=== PATIENT | female | born 1960 | race Caucasian/White ===

== ENCOUNTER → 2017-03-16 | Outpatient (CLI) | payer BC ==
[~2017-03-16] MED LIST: FLUT0.15 NAE; MULT-506 PO
--- NOTE | 2017-03-16 12:29 | MAMMOGRAPHY REPORT ---
BILATERAL DIGITAL SCREENING MAMMOGRAM TOMOSYNTHESIS WITH CAD: 03/16/2017 CLINICAL HISTORY: Routine screening. Patient has no complaints. TECHNIQUE: Breast tomosynthesis in addition to standard 2D mammography was performed. Current study was also evaluated with a Computer Aided Detection (CAD) system. COMPARISON: Comparison is made to exams dated: 03/15/2016 mammogram, 09/09/2014 ultrasound, 03/12/2015 mammogram, 09/09/2014 mammogram, 03/12/2014 mammogram, and 03/05/2014 mammogram - [facility]. BREAST COMPOSITION: The tissue of both breasts is heterogeneously dense, which may obscure small mas ses. FINDINGS: No suspicious masses, calcifications, or areas of architectural distortion are noted in ei ther breast. There has been no significant interval change compared to prior exams. Bilateral benign -appearing calcifications are not significantly changed, including loosely grouped calcifications in the right 12:00 breast which are stable dating back to at least the 2010 exam. IMPRESSION: ACR BI-RADS CATEGORY 2: BENIGN There is no mammographic evidence of malignancy. A 1 year screening mammogram is recommended. The pa tient will receive written notification of the results. Approximately 10% of breast cancers are not detected with mammography. A negative mammographic report should not delay biopsy if a clinically suggestive mass is present. Dior Gamino M.D. /:03/16/2017 08:02:28 Ambulatory Service Representative: Leeann OLVERA)(Jenny), [facility] letter sent: Normal 1/2 BI-RADS Code: ACR BI-RADS Category 2: Benign
== END | disposition home or self-care (01) ==
LOC: C.MAMM 07:39
PROVIDERS: ATTEND Obstetrics & Gynecology
DX: Z12.31 Encounter for screening mammogram for malignant neoplasm of breast (principal)

== ENCOUNTER → 2017-03-23 | Outpatient (CLI) | payer BC | END | disposition home or self-care (01) | LOC: C.PAPS 11:18 | PROVIDERS: ATTEND Obstetrics & Gynecology | DX: Z01.419 Encounter for gynecological examination (general) (routine) without abnormal findings (principal); Z11.51 Encounter for screening for human papillomavirus (HPV); Z87.410 Personal history of cervical dysplasia ==

== ENCOUNTER 2017-04-07 09:55 | Observation (INO) | payer BC ==
[2017-03-31 13:30] VITALS: BMI 22.0
--- NOTE | 2017-03-31 14:05 | PAT Medication Instructions ---
Service Date Mar 31, 2017. Current Home Medication List Fluticasone Propionate (Nasal) (Flonase Allergy Relief), 1 SPRAY OBIE QAM Multivitamin (Multivitamin), 1 TAB PO QAM Medication Instructions For Your Scheduled Surgery - Hold the following medications the morning of surgery: Multivitamin (Multivitamin), 1 TAB PO QAM - Take the following medications the morning of surgery with a sip of water: Fluticasone Propionate (Nasal) (Flonase Allergy Relief), 1 SPRAY OBIE QAM *nothing to eat or drink after midnight* If you have any questions please call us at [phone] or [phone] or [phone]
[2017-03-31 14:40] LABS: BASO % 0.2 %; BASO ABS # 0.01 K/uL (0-0.2); COMPLETE YES; EOS % 0.7 %; HEMATOCRIT 43.4 % (37-47); LYMPH % 20.9 %; LYMPH ABS # 0.93 K/uL (1.2-3.4); MEAN CORPUSCULAR HEMOGLOBIN 30.6 pg (25-34); MEAN CORPUSCULAR HGB CONC 33.6 g/dl (32-36); MEAN PLATELET VOLUME 10.8 fL (7.4-10.4); MONO % 6.3 %; NEUT % 71.9 %; PLATELET COUNT 179 K/uL (130-400); RED BLOOD COUNT 4.77 M/uL (4.2-5.4); WHITE BLOOD COUNT 4.46 K/uL (4.8-10.8)
[2017-04-07] VITALS (8 sets, daily range): BP systolic 106–125; BP diastolic 64–72; PULSE 87–124; TEMP 36.3–37; O2SAT 91–100; Ht 162.6 cm; Wt 58.4 kg
[~2017-04-07] VITALS: Ht 162.6 cm; Wt 58.4 kg
[~2017-04-07 09:55] MED LIST changes: +CEFAZOLIN 2000MG IV PUSH 10 ML IV SCH; +LACTATED RINGER'S 1000ML 1,000 ML IV SCH; +LACTATED RINGER'S 1000ML IV SCH; +SCOPOLAMINE 1.5 MG TDSY TD SCH
[2017-04-07] MEDS ORDERED: CEFAZOLIN SOD 2000MG/10 ML IV PUSH IV ONE (11:10)
[2017-04-07] MEDS ORDERED: SCOPOLAMINE 1.5 MG TDSY TD ONE (11:15)
[2017-04-07] MEDS ORDERED: FENTANYL CITRATE INJ 50 MCG/1 ML 2 ML VIAL ONE ×2 (12:03→14:20)
[2017-04-07] MEDS ORDERED: HYDROmorphone INJ 2 MG/ML SYR/VIAL ONE (12:03)
[2017-04-07] MEDS ORDERED: MIDAZOLAM HCL 1 MG/ML 2ML VIAL ONE (12:03)
[2017-04-07] MEDS ORDERED: METHYLENE BLUE 0.5% 10 ML VIAL ONE (12:32)
[2017-04-07] MEDS ORDERED: BUPIVACAINE 0.5 % 5 MG/1 ML MPF 30ML VIAL ONE (12:32)
--- NOTE | 2017-04-07 12:40 | History & Physical Bridge Note ---
H&P Re-Evaluation Bridge Note: I have examined the patient, reviewed the History & Physical and in the interval since the performance of the History & Physical I have noted the following changes of clinical significance: No changes noted
[2017-04-07] MEDS ORDERED: CISATRACURIUM BESYLATE IV SOLN 2 MG/ML 10 ML VIAL ONE (14:20)
[2017-04-07] MEDS ORDERED: NEOSTIGMINE METHYLSULFATE 5 MG/5 ML SYR ONE (14:20)
[2017-04-07] MEDS ORDERED: KETOROLAC TROMETHAMINE 30 MG/ML VIAL ONE (14:20)
[2017-04-07] MEDS ORDERED: PROPOFOL IV EMULSION 10 MG/ML 20 ML VIAL IV ONE (14:20)
[2017-04-07] MEDS ORDERED: SUCCINYLCHOLINE CHLORIDE 20 MG/ML 10 ML VIAL IV ONE (14:20)
[2017-04-07] MEDS ORDERED: ONDANSETRON INJ 2 MG/ML 2 ML VIAL ONE (14:20)
[2017-04-07] MEDS ORDERED: GLYCOPYRROLATE INJ 0.2 MG/ML VIAL ONE (14:20)
[2017-04-07] MEDS ORDERED: DEXAMETHASONE SOD INJ 4 MG/ML VIAL ONE (14:20)
[2017-04-07] MEDS ORDERED: LIDOCAINE HCL 2% 2 ML VIAL (20MG/ML) ONE (14:20)
[2017-04-07] MEDS ORDERED: TISSEEL FIBRIN SEALANT 4ML TOP ONE (14:38)
[2017-04-07] MEDS ORDERED: MEPERIDINE HCL 50 MG/ML CARP IV PRN ×2 (15:30)
[2017-04-07] MEDS ORDERED: PROMETHAZINE HCL INJ 25 MG in SODIUM CHLORIDE 0.9% 50ML 50 ML IV PRN (15:30)
[2017-04-07] MEDS ORDERED: LACTATED RINGER'S 1000ML 1,000 ML IV SCH (15:30)
[2017-04-07] MEDS ORDERED: IBUPROFEN 600 MG TAB PO PRN (15:30)
[2017-04-07] MEDS ORDERED: OXYCODONE/ACETAMINOPHEN 5-325 TAB PO PRN ×2 (15:30)
[2017-04-07] MEDS ORDERED: SIMETHICONE 80 MG CHEW PO PRN (15:30)
[2017-04-07] MEDS ORDERED: ACETAMINOPHEN 325 MG TAB PO PRN (15:30)
[2017-04-07] MEDS ORDERED: KETOROLAC TROMETHAMINE 30 MG/ML VIAL IV. PRN (15:30)
--- NOTE | 2017-04-07 15:33 | [facility] Post Operative Brief Note ---
Immediate Operative Summary Operative Date Apr 07, 2017. Pre-Operative Diagnosis Postmenopausal bleeding, leiomyoma of uterus Post-Operative Diagnosis Postmenopausal bleeding, leiomyoma of uterus Procedure(s) Performed Robot Assisted Total Laparoscopic Hysterectomy, Bilateral Salpingo-oophorectomy , Cystoscopy; Surgical resection of uterus, cervix, bilateral fallopian tubes and ovaries Surgeon Dr. Reta Ferrell Buckle Gluer Surgeon(s) Dr Leggett Estimated Blood Loss 25 mL Findings uterus about 15 weeks size, nl ovs, nl tubes, fibroids Fluids (cc crystalloids) 1700cc Specimens Permanent specimens A: Surgically resected uterus, cervix, bilateral fallopian tubes and bilateral ovaries Drains major Anesthesia gett Complication(s) None Disposition Recovery Room / PACU
[2017-04-07] MEDS ORDERED: OXYC-57 PO (15:34)
--- NOTE | 2017-04-07 15:35 | Discharge Instructions ---
Discharge Instructions Date of Service Apr 07, 2017. Admission Reason for Admission: Leiomyoma Of Uterus, Post Menopausal Bleeding Discharge Discharge Diagnosis / Problem: s/p laproscopic removal of uterus, tubes and ovaries. Discharge Goals Goal(s): Routine recovery after surgery Activity Recommendations Activity Limitations: per Instructions/Follow-up section . Instructions / Follow-Up Instructions / Follow-Up POST OPERATIVE: BOWEL FUNCTION/MEDICATIONS: 1. Constipation pain and discomfort are the most common complaints 5-7 days after surgery. Points 2-6 address the things that can help. 2. Chewing gum can help stimulate the gut and help improve digestion and motility. 3. Milk of Magnesia 1-2 times per day until return of bowel function. 4. Colace is a stool softener that helps. Taking this 2-3 times per day until bowel function returns to normal is highly recommended. 5. Dulcolax is a laxative that may be used if several days have passed without a bowel movement. Alternatively Miralax may be used daily instead. 6. Drink plenty of fluids as this will also reduce constipation. 7. Narcotic pain medications will be prescribed by your physician. They are safe to use and we encourage you to use them. If you are not allergic, ibuprofen will also be prescribed. Many patients will be able to transition off of the narcotic medications to ibuprofen by postoperative day 3. ACTIVITY RECOMMENDATIONS: 1. Get plenty of rest and listen to your body. If you are tired, take a nap. 2. You may shower, but do not take a tub bath until you see your doctor at the 2 week post operative visit. 3. Absolutely NO intercourse and nothing in the vagina until you are examined by your doctor at the 6 week visit. At that visit it will be determined when such activities can be resumed. This can range from 6-12 weeks after your surgery depending on healing time. 4. The main physical activity in the first week should be walking. By the second week you can slowly increase activity. There are no limits on walking up and down stairs. 5. Do not lift more than 5-10 lbs for 4 weeks. Remember the "one-handed rule", i.e. if you can lift something with only one hand it's likely okay. 6. Minimize glass cutter helper like vacuuming and exercising for 4 weeks. "Overdoing it" can lead to incisions not healing, pain and vaginal bleeding , so again, listen to your body. 7. Driving can be resumed when you feel able. Do not drive within 24 hours of taking a narcotic medication. EXPECTATIONS: 1. Vaginal spotting, bleeding and discharge are common after surgery. There may even be an odor to the discharge which is often related to sutures used in the vagina. If you experience heavy vaginal bleeding, call the office number day or night [phone]. 2. Bladder discomfort is common after surgery from the catheter. This usually resolves in 1-2 weeks. 3. By the end of the 3rd or 4th week you should be feeling much better. It may take up to 6 weeks for your energy levels to return to normal. 4. Narcotic medications have side effects such as: dizziness, headache, nausea and/or vomiting. If you suspect your pain medication is causing problems, call our office and we may be able to prescribe an alternate medication. 5. The skin incisions are often covered with a liquid bandage. This will gradually peel off over time. CALL THE OFFICE IF YOU HAVE ANY OF THE FOLLOWIN. Temperature of 101 degrees or higher. 2. Severe abdominal or pelvic pain not relieved by pain medication. 3. Persistent nausea or vomiting. 4. Increased pain with urination or difficulty urinating. 5. Bright red bleeding that soaks more than 1 pad per hour. CONTACT PHONE NUMBERS: Main Office: [phone] Surgical Nurse: [phone] extension [phone] FOLLOW-UP: Post-Operative Appointments: * Individual instructions will have been given about the timing of your first examination, but this is usually at the end of the second week home. * You will need to call the office at soon after discharge to make the appointment for your post-op check-up if it has not already been scheduled. * Additional information regarding activity, sexual intercourse and when to return to work will be given at this appointment. WE WISH YOU A SPEEDY RECOVERY! Current Hospital Diet Patient's current hospital diet: Discharge Diet Recommended Diet: Regular Diet Procedures Procedures Performed: Robot Assisted Total Laparoscopic Hysterectomy, Bilateral Salpingo-oophorectomy , Cystoscopy; Surgical resection of uterus, cervix, bilateral fallopian tubes and ovaries Pending Studies Studies pending at discharge: no Medical Emergencies . Who to Call and When: Medical Emergencies: If at any time you feel your situation is an emergency, please call 911 immediately. . Non-Emergent Contact Non-Emergency issues call your: Seafood Clerk . . "Provider Documentation" section prepared by Reta Ferrell. . VTE Core Measure Inpt VTE Proph given/why not?: Treatment not indicated [place] Drug Monitoring Program Search Results: patient reviewed within database, no issues identified
[2017-04-07] MEDS ORDERED: IV FLUIDS COMPLETED PRN (16:00)
[2017-04-07] MEDS ORDERED: ONDANSETRON INJ 2 MG/ML 2 ML VIAL IV PRN (16:30)
[2017-04-07] MEDS ORDERED: ALBUT/IPRATROP 3MG/0.5MG NEB 3 ML VIAL INH PRN (16:30)
[2017-04-07] MEDS ORDERED: LABETALOL HCL IV 5 MG/ML 20ML IV PRN (16:30)
[2017-04-07] MEDS ORDERED: HYDROmorphone INJ 1 MG/ML SYR IV PRN (16:30)
[2017-04-07] MEDS ORDERED: PROMETHAZINE HCL INJ 12.5 MG in SODIUM CHLORIDE 0.9% 50ML 50 ML IV PRN (16:30)
[2017-04-07] MEDS ORDERED: FLUMAZENIL 0.1 MG/1 ML 10 ML VIAL IV PRN (16:30)
[2017-04-07] MEDS ORDERED: EpHEDrine SULFATE INJ 50 MG/ML AMP IV PRN (16:30)
[2017-04-07] MEDS ORDERED: NALOXONE HCL 0.4 MG/1 ML VIAL/CARP IV PRN (16:30)
[2017-04-07] MEDS ORDERED: METOPROLOL TARTRATE 1 MG/ML VIAL ONE (16:58)
[2017-04-07] MEDS ORDERED: METOPROLOL TARTRATE 1 MG/ML VIAL IV STA (17:00)
--- NOTE | 2017-04-07 17:40 | Anesthesiology Progress Note ---
Anesthesia Post Op Note Date & Time Apr 07, 2017 at 17:40 Vital Signs Pain Intensity: 0 Vital Signs Past 12 Hours Date Time Temp Pulse Resp B/P (MAP) Pulse Ox O2 Delivery O2 Flow Rate FiO2 04/07/17 17:31 117/67 04/07/17 17:30 36.8 100 21 117/67 99 Oxymask 3 04/07/17 17:30 115 20 04/07/17 17:30 116 20 95 04/07/17 17:26 119/68 04/07/17 17:25 113 20 04/07/17 17:25 114 20 98 04/07/17 17:20 110 19 04/07/17 17:20 110 19 122/66 97 04/07/17 17:15 102 15 04/07/17 17:15 101 15 98/61 97 04/07/17 17:11 104/72 04/07/17 17:10 102 4 97 04/07/17 17:10 102 4 04/07/17 17:05 110 11 114/61 97 04/07/17 17:05 110 11 04/07/17 17:00 132 20 115/65 97 04/07/17 17:00 131 20 04/07/17 16:56 114/61 04/07/17 16:55 123 22 97 04/07/17 16:55 122 22 04/07/17 16:50 123 13 04/07/17 16:50 122 13 132/61 92 04/07/17 16:45 136 14 118/66 98 04/07/17 16:45 135 14 04/07/17 16:40 127 15 119/60 99 04/07/17 16:40 127 15 04/07/17 16:36 119/60 04/07/17 16:35 123 17 99 04/07/17 16:35 123 17 04/07/17 16:34 124 21 99 04/07/17 16:34 126 21 04/07/17 16:30 128/63 04/07/17 16:29 130 18 04/07/17 16:29 130 18 98 04/07/17 16:26 119/61 04/07/17 16:24 128 21 99 04/07/17 16:24 127 21 04/07/17 16:20 129/68 04/07/17 16:19 126 27 04/07/17 16:19 124 27 98 04/07/17 16:16 134/74 04/07/17 16:15 36.8 107 12 144/83 100 Oxymask 10 04/07/17 16:14 127 35 99 04/07/17 16:14 128 35 04/07/17 16:10 124 18 100 Mask 9.0 04/07/17 16:10 141/69 04/07/17 16:09 126 27 04/07/17 16:09 125 27 99 04/07/17 16:05 144/83 144/83 04/07/17 16:04 132 28 98 04/07/17 16:04 133 28 04/07/17 16:01 119/83 04/07/17 15:59 83 14 04/07/17 15:59 84 14 100 04/07/17 15:56 103/52 04/07/17 15:55 40 04/07/17 15:54 87 20 100 04/07/17 15:54 86 20 04/07/17 15:50 124/67 04/07/17 15:49 106 23 04/07/17 15:49 106 23 100 04/07/17 15:45 105/58 04/07/17 15:44 110 26 04/07/17 15:44 110 26 98 04/07/17 15:41 89/51 89/51 04/07/17 15:39 94 21 88 04/07/17 15:39 93 21 04/07/17 15:35 91/55 04/07/17 15:35 92/55 04/07/17 15:34 109 19 73 04/07/17 15:34 109 19 04/07/17 10:58 37.0 87 18 125/67 (86) 98 Room Air Notes Mental Status: alert / awake / arousable, participated in evaluation Pt Amnestic to Procedure: Yes Nausea / Vomiting: adequately controlled Pain: adequately controlled Airway Patency, RR, SpO2: stable & adequate BP & HR: stable & adequate Hydration State: stable & adequate Anesthetic Complications: no major complications apparent
--- NOTE | 2017-04-07 17:46 | OPERATIVE REPORT ---
DATE OF OPERATION: 04/07/2017 PREOPERATIVE DIAGNOSES: 1. Postmenopausal bleeding. 2. Leiomyomata of the uterus. POSTOPERATIVE DIAGNOSES: Same. PROCEDURES: 1. Robotic assisted total laparoscopic hysterectomy and bilateral salpingo-oophorectomy. 2. Cystoscopy. 3. ExCITE surgical resection of uterus, cervix, bilateral fallopian tubes and ovaries in a contained bag. SURGEON: Reta Ferrell MD [employer] LIBRARIAN: Barrington Leggett MD ESTIMATED BLOOD LOSS: 25 mL. FLUIDS: 1700 mL of crystalloid. URINE OUTPUT: Approximately 300 mL of clear yellow urine drained from the bladder at the end of the procedure. FINDINGS: The uterus was approximately 15-week size and irregular, consistent with fibroids. Normal ovaries and tubes were noted bilaterally. COMPLICATIONS: None. DRAINS: Cabrera. DISPOSITION: To recovery room in stable condition. DESCRIPTION OF PROCEDURE: The patient was taken to the operating room where she was identified verbally and by bracelet. She was placed in dorsal supine position where general anesthesia was induced without difficulty. She was then placed in dorsal lithotomy position in [facility]. Her arms were carefully protected and tucked at her side. Her chest was protected and restrained. The drier operator head was placed and patient was prepped and draped in normal sterile fashion. Timeout was held identifying correct patient, procedure and positioning. Attention was turned to the vagina where a speculum was placed in the vagina. The anterior lip of the cervix was grasped with a single tooth tenaculum. The uterus sounded to 12 cm, was dilated to #25 Jennifer dilator. A VCare uterine manipulator was placed into the uterus and sutured to the cervix at approximately 8 o'clock. A Cabrera catheter was placed. Gloves were then changed. Attention was then turned to the abdomen where an incision 2 fingerbreadths above the umbilicus was made with a knife. The Veress needle was placed through this, opening pressure was 3 mmHg. Abdomen was insufflated with 3 liters of carbon dioxide gas. A 12 mm optical trocar with a camera was placed through this and intraabdominal placement was confirmed. The patient was then placed into Trendelenburg position and Two 8 mm da Ivy trocars were placed in the right and left lower quadrants and an accessory 10 mm trocar was placed in the left upper quadrant, all under direct visualization. The uterus was found to be approximately 15 weeks' size, it was mobile. Tubes and ovaries were normal bilaterally. There were no adhesions. The da Ivy surgical specialist device was docked to patient and then the window machine operator turned to the console. First starting on the right and then starting on the left, making sure that the ureter was free from the infundibulopelvic ligament, the infundibulopelvic ligament was cauterized and cut with hot judd. Then the round ligament was cauterized and cut with hot judd and this was taken down to the area of the broad ligament. This was repeated then subsequently on the left side. Once the bladder flap was then created anteriorly on both sides meeting in the middle and the bladder was pushed down. The uterine arteries were cauterized and cut with hot judd on both sides and still the uterus blanched. Once the bladder was assured to be free of cervix and upper vagina, colpotomy incision was made with hot judd in 365 degrees and the uterus specimen was disconnected and placed into the right upper quadrant. The colpotomy was then reapproximated with 2-0 VCare suture. Cystoscopy was then performed by Dr. Leggett using a 70 degree scope. Both ureteral orifices were visualized and found to be effluxing urine and there were no stitches in the vagina. This ended cystoscopy. The former Cabrera catheter was removed and a new clean Cabrera catheter was placed. The cuff was then treated with Tisseel. The da Ivy surgical specialist device was disconnected from patient. The patient was taken out of Trendelenburg. A 15 mm trocar was then placed in the supraumbilical incision and the fascia was opened slightly with the knife. A bag was placed in the abdomen and the uterine specimen was placed into this bag. The bag was brought up through the umbilical site. A small John retractor was then placed into the bag. Then using a knife and grasping the specimen with a towel clip, the specimen was incised until it was removed entirely from the bag. The John device was removed. The bag was removed. The bag was noted to be intact. Evaluation of the pelvis again revealed hemostasis using a 5 mm scope. Attention was then turned to the supraumbilical incision, where the fascia was reapproximated with 0 Vicryl in a running fashion. The skin incisions were then all closed with 4-0 Vicryl in subcuticular fashion, they were all infiltrated with 0.5% Marcaine. The procedure was then terminated. All sponge, lap and needle counts were correct x2. The patient tolerated the procedure well and was taken to recovery room in stable condition. I attest to the content of the Intraoperative Record and any orders documented therein. Any exception s are noted below.
[2017-04-07] MEDS ORDERED: INFLUENZA VIRUS QUAD VACCINE 0.5 ML SYR IM. ONE (20:30)
[2017-04-07] MEDS ORDERED: INFLUENZA ADMINISTRATION CHARGE ONE (20:30)
[2017-04-08] MEDS ORDERED: LACTATED RINGER'S 1000ML 1,000 ML IV SCH (00:15)
[2017-04-08] MEDS: CHECK SCOPOLAMINE PATCH PLACEMENT SCH ×2 (00:21→07:32)
[2017-04-08 00:35] LABS: HEMATOCRIT 41.6 % (37-47)
[2017-04-08 00:50] VITALS: BP 107/65; PULSE 117; TEMP 36.7; O2SAT 96
[2017-04-08 00:53] VITALS: BP 111/73; PULSE 102; TEMP 36.7; O2SAT 96
[2017-04-08 07:03] VITALS: BP 99/66; PULSE 84; TEMP 37.3; O2SAT 96
--- NOTE | 2017-04-08 08:01 | OB/GYN Progress Note ---
HOME SERVICE DEMONSTRATOR Progress Note Date of Service Apr 08, 2017. Subjective conversation w/ patient, physical exam, lab review Ambulation: ambulating normally Voiding: no incontinence (catheter just removed and has not yet voided) Passing Gas: Yes Diet Tolerance: Regular Diet Notes: Patient feeling a little better this am. She is sitting up in a chair and her major has been removed. Has tried to void x 1. No bleeding. NO n/v. Notes dizziness is better. Objective Vital Signs Date Time Temp Pulse Resp B/P (MAP) Pulse Ox O2 Delivery O2 Flow Rate FiO2 04/08/17 07:50 Room Air 04/08/17 07:03 37.3 84 20 99/66 (77) 96 Room Air 04/08/17 00:53 36.7 102 16 111/73 (86) 96 Room Air 04/08/17 00:50 Room Air 04/08/17 00:50 36.7 117 18 96 04/07/17 23:55 96 Room Air 04/07/17 23:55 36.7 117 18 107/65 (79) 96 Room Air 04/07/17 20:50 36.8 104 18 106/68 (81) 99 Room Air 1.0 04/07/17 19:40 36.8 96 16 117/70 (86) 98 Nasal Cannula 1.0 04/07/17 18:45 36.3 98 18 109/64 (79) 93 Nasal Cannula 1.0 04/07/17 18:15 36.3 100 18 119/70 (86) 91 Room Air 04/07/17 17:45 36.3 105 20 120/72 (88) 99 Nasal Cannula 2.0 04/07/17 17:45 99 Nasal Cannula 2.0 04/07/17 17:31 117/67 04/07/17 17:30 36.8 100 21 117/67 99 Oxymask 3 04/07/17 17:30 115 20 04/07/17 17:30 116 20 95 04/07/17 17:26 119/68 04/07/17 17:25 113 20 04/07/17 17:25 114 20 98 04/07/17 17:20 110 19 04/07/17 17:20 110 19 122/66 97 04/07/17 17:15 102 15 04/07/17 17:15 101 15 98/61 97 04/07/17 17:11 104/72 04/07/17 17:10 102 4 97 04/07/17 17:10 102 4 04/07/17 17:05 110 11 114/61 97 04/07/17 17:05 110 11 04/07/17 17:00 132 20 115/65 97 04/07/17 17:00 131 20 04/07/17 16:56 114/61 04/07/17 16:55 123 22 97 04/07/17 16:55 122 22 04/07/17 16:50 123 13 04/07/17 16:50 122 13 132/61 92 04/07/17 16:45 136 14 118/66 98 04/07/17 16:45 135 14 04/07/17 16:40 127 15 119/60 99 04/07/17 16:40 127 15 04/07/17 16:36 119/60 04/07/17 16:35 123 17 99 04/07/17 16:35 123 17 04/07/17 16:34 124 21 99 04/07/17 16:34 126 21 04/07/17 16:30 128/63 04/07/17 16:29 130 18 04/07/17 16:29 130 18 98 04/07/17 16:26 119/61 04/07/17 16:24 128 21 99 04/07/17 16:24 127 21 04/07/17 16:20 129/68 04/07/17 16:19 126 27 04/07/17 16:19 124 27 98 04/07/17 16:16 134/74 04/07/17 16:15 36.8 107 12 144/83 100 Oxymask 10 04/07/17 16:14 127 35 99 04/07/17 16:14 128 35 04/07/17 16:10 124 18 100 Mask 9.0 04/07/17 16:10 141/69 04/07/17 16:09 126 27 04/07/17 16:09 125 27 99 04/07/17 16:05 144/83 144/83 04/07/17 16:04 132 28 98 04/07/17 16:04 133 28 04/07/17 16:01 119/83 04/07/17 15:59 83 14 04/07/17 15:59 84 14 100 04/07/17 15:56 103/52 04/07/17 15:55 40 04/07/17 15:54 87 20 100 04/07/17 15:54 86 20 04/07/17 15:50 124/67 04/07/17 15:49 106 23 04/07/17 15:49 106 23 100 04/07/17 15:45 105/58 04/07/17 15:44 110 26 04/07/17 15:44 110 26 98 04/07/17 15:41 89/51 89/51 04/07/17 15:39 94 21 88 04/07/17 15:39 93 21 04/07/17 15:35 91/55 04/07/17 15:35 92/55 04/07/17 15:34 109 19 73 04/07/17 15:34 109 19 04/07/17 10:58 37.0 87 18 125/67 (86) 98 Room Air Physical Exam General Appearance: WD/WN, NO APPARENT DISTRESS Respiratory/Chest: lungs clear, normal breath sounds Cardiovascular: regular rate, rhythm Abdomen: normal bowel sounds, non tender, soft Extremities: non-tender, normal inspection, no pedal edema Laboratory Results Last 24 Hours Test 04/08/17 00:23 Hemoglobin 14.2 g/dL Hematocrit 41.6 % Assessment and Plan Post-Op Day Number: 1 Continue Routine Care: Suspect patient will void. When she meets d/c criteria, can be d/c. Instructions given.
[2017-04-08] MEDS ORDERED: NURSING VERBAL MED ORDER ONE (09:45)
[2017-04-08 11:00] VITALS: BP 103/65; PULSE 100; TEMP 37.3; O2SAT 94
[2017-04-08 11:43] VITALS: BP 103/65; PULSE 100; TEMP 37.3; O2SAT 94
--- NOTE | 2017-04-10 17:01 | DISCHARGE SUMMARY ---
ADMISSION DIAGNOSES: 1. Fibroid uterus. 2. Postmenopausal bleeding. DISCHARGE DIAGNOSES: Same. PROCEDURES: 1. Total laparoscopic hysterectomy and bilateral salpingo-oophorectomy via da Ivy assist. 2. Cystoscopy. 3. ExCITE surgical removal of specimen from the abdomen. HISTORY: The patient is a 57-year-old postmenopausal, 3, para 3, who presents for hysterectomy for issues of abnormal Pap smear, postmenopausal bleeding and growing fibroid uterus. For the rest of the patient's detailed history and physical, please see her dictated history and physical. ASSESSMENT: This is a 57-year-old postmenopausal G3, P3 with postmenopausal bleeding and a growing fibroid uterus. HOSPITAL COURSE: The patient was admitted and underwent a total laparoscopic hysterectomy, bilateral salpingo-oophorectomy with ExCITE surgical removal of specimen and cystoscopy. She tolerated this procedure very well. ESTIMATED BLOOD LOSS: 25 mL. FINDINGS: At the time of surgery revealed a 15-week size uterus with normal ovaries, normal tubes and multiple fibroids. The patient's postoperative course was complicated by dizziness and lightheadedness postoperatively and most likely from anesthesia. She had some minimal nausea. She was unable to get up and ambulate because of this. The next morning, her Cabrera catheter was removed. She voided without difficulty. She ambulated without difficulty. She tolerated a regular diet. She remained afebrile. Her H&H was stable and she was discharged home. She was given Percocet and ibuprofen for pain management and will return in 2 weeks for postoperative visit.
== END 2017-04-08 12:30 | disposition home or self-care (01) ==
LOC: C.ACU 09:55 → C.MS4N 11:10 → ENRESERV 17:32 → C.MSW 04-08 01:19
PROVIDERS: ADMIT Obstetrics & Gynecology; ATTEND Obstetrics & Gynecology
DX: D25.1 Intramural leiomyoma of uterus (principal); N85.8 Other specified noninflammatory disorders of uterus; N83.8 Other noninflammatory disorders of ovary, fallopian tube and broad ligament
CPT/HCPCS: 58573; S2900